=== PATIENT | male | born 1995 ===

== ENCOUNTER 2017-08-09 16:13 | Emergency (ER) | payer SELFPAY ==
[~2017-08-09] VITALS: Ht 152.4 cm; Wt 70.0 kg
[2017-08-09 16:14] VITALS: BP 134/80; PULSE 76; RESP 20; TEMP 98.1; O2SAT 99
--- NOTE | 2017-08-09 16:54 | PD ---
HPI . wants prophylactic treatment for STDs Chief Complaint: Complaint Time Seen by Provider: 16:37 Travel History International Travel<30 days: No Contact w/Intl Traveler<30days: No Traveled to known affect area: No History of Present Illness HPI 22-year-old male here wanting prophylactic antibiotics for STDs. Patient tells me that him and his girlfriend got into an argument and she possibly could have an STD and he would just like to be treated. He has no complaints of penile discharge, burning or any symptoms of STD. PFSH Social History Tobacco Use: No Allergies-Medications (Allergen,Severity, Reaction): Coded Allergies: No Known Allergies (Unverified , 08/09/17) Review of Systems General / Constitutional: No: Fever Eyes: No: Visual changes HENT: No: Headaches Cardiovascular: No: Chest Pain or Discomfort Respiratory: No: Shortness of Breath Gastrointestinal: No: Abdominal Pain Genitourinary: No: Dysuria Musculoskeletal: No: Pain Skin: No Rash Neurologic: No: Weakness Psychiatric: No: Depression Endocrine: No: Polydipsia Hematologic/Lymphatic: No: Easy Bruising Physical Exam Narrative GENERAL: AAO x 3, no acute distress, Well-nourished, well-developed patient. SKIN: Warm and dry. No visible rashes or bruising. HEAD: Normocephalic and atraumatic. EYES: No scleral icterus. No injection or drainage. ENT: No nasal drainage noted. Mucous membranes pink. Airway patent. NECK: Supple, trachea midline. No JVD. CARDIOVASCULAR: Regular rate and rhythm without murmurs, gallops, or rubs. RESPIRATORY: Breath sounds equal bilaterally. No accessory muscle use. No rhonchi or rales. GASTROINTESTINAL: Abdomen soft, non-tender, nondistended. GENITAL: Brionna HOLT present: no penile discharge or abnormality EXTREMITIES: No cyanosis or edema. BACK: No obvious deformity. NEURO: CN II-12 intact, PSYCH: AAO x 3, normal affect. Data Data Last Documented VS Vital Signs Date Time Temp Pulse Resp B/P (MAP) Pulse Ox O2 Delivery O2 Flow Rate FiO2 08/09/17 16:14 98.1 76 20 134/80 (98) 99 MDM Medical Decision Making Medical Screen Exam Complete: Yes Emergency Medical Condition: No Medical Record Reviewed: Yes Differential Diagnosis STD screening, STD exposure, Narrative Course A medical screening exam was performed: At the time of evaluation the presenting medical condition was determined not to be of an emergent nature. The patient was given the option of receiving additional care, but declined. Patient was given options for additional community resources from which to obtain care. The Patient Has Been advised to seek medical attention for their presenting complaint. The patient has been advised to return to the ER at any time if an emergent condition develops. We had a prolonged discussion and patient is very concerned about bill. He has no symptoms. I advised him to f/u with his school clinic or [facility] for screening for STDs. I offered prophylactic treatment if he felt he was exposed or had symptoms and he declined. Diagnosis Primary Impression: Encounter for medical screening examination Condition: Stable Mary Patterson Aug 09, 2017 16:54
== END 2017-08-09 17:04 | disposition left against medical advice (07) ==
LOC: NEPK 16:13
DX: Z20.2 Contact with and (suspected) exposure to infections with a predominantly sexual mode of transmission (principal)
CPT/HCPCS: 99281